=== PATIENT | female | born 2000 | race Caucasian/White ===

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

== ENCOUNTER → 2020-10-10 10:52 | Outpatient (BNVA) | payer OTHER, SELFPAY | PROVIDERS: Family Provider Registered Nurse; PCP Registered Nurse; Visit Provider Registered Nurse | DX: K58.9 Irritable bowel syndrome, unspecified (principal); G57.93 Unspecified mononeuropathy of bilateral lower limbs; Z79.899 Other long term (current) drug therapy | CPT/HCPCS: 80053; 82607; 85025 ==

== ENCOUNTER → 2023-11-13 14:50 | Outpatient (BNVA) | payer OTHER, SELFPAY | PROVIDERS: Family Provider Registered Nurse; PCP Registered Nurse; Visit Provider Registered Nurse | DX: B37.9 Candidiasis, unspecified (principal); B37.31 Acute candidiasis of vulva and vagina; F41.9 Anxiety disorder, unspecified | CPT/HCPCS: 81000 ==